=== PATIENT | female | born 1970 ===

== ENCOUNTER 2018-08-16 21:33 | Emergency (ER) | payer OTHER ==
[2018-08-16 21:40] VITALS: O2SAT 100
--- NOTE | 2018-08-16 21:49 | C.PDOC ---
History Of Present Illness 47 y/o female presents to the ED complaining of right lower quadrant pain and back pain that started earlier today. She denies any fever, chills, nausea, or vomiting. Pain is rated 4/10 and constant. Otherwise patient denies associated diarrhea, dysuria, frequency, or urinary incontinence. Time Seen by Provider: 08/16/18 21:48 Chief Complaint (Nursing): Abdominal Pain History Per: Patient History/Exam Limitations: no limitations Onset/Duration Of Symptoms: Hrs Current Symptoms Are (Timing): Still Present Severity: Moderate Pain Scale Rating Of: 4 Location Of Pain/Discomfort: RLQ Radiation Of Pain To:: Back Quality Of Discomfort: "Pain" Associated Symptoms: denies: Nausea, Vomiting, Urinary Symptoms Alleviating Factors: None Past Medical History Reviewed: Historical Data, Nursing Documentation, Vital Signs Vital Signs: Last Vital Signs Temp 97.6 F 08/16/18 21:37 Pulse 61 08/16/18 21:37 Resp 20 08/16/18 21:37 BP 123/80 08/16/18 21:37 Pulse Ox 100 08/16/18 21:37 - Medical History PMH: Asthma, Hypothyroidism Other Surgeries: Gastric surgery Family History: States: No Known Family Hx - Social History Hx Alcohol Use: Yes Hx Substance Use: No - Immunization History Hx Tetanus Toxoid Vaccination: No Hx Influenza Vaccination: No Hx Pneumococcal Vaccination: No Review Of Systems Constitutional: Negative for: Fever, Chills Gastrointestinal: Positive for: Abdominal Pain (RLQ). Negative for: Nausea, Vomiting, Diarrhea, Constipation, Hematochezia Genitourinary: Negative for: Dysuria, Frequency, Incontinence, Hematuria Musculoskeletal: Positive for: Back Pain Physical Exam - Physical Exam Appears: Non-toxic, No Acute Distress Skin: Warm, Dry Head: Normacephalic Eye(s): bilateral: Normal Inspection Oral Mucosa: Moist Neck: Trachea Midline, Supple Chest: Symmetrical Cardiovascular: Rhythm Regular Respiratory: No Rales, No Rhonchi, No Wheezing Gastrointestinal/Abdominal: Soft, Tenderness (to RLQ and right flank), No Gua rding, No Rebound Back: No CVA Tenderness, No Vertebral Tenderness Extremity: Bilateral: Normal Color And Temperature, Normal ROM Pulses: Left Dorsalis Pedis: Normal, Right Dorsalis Pedis: Normal Neurological/Psych: Oriented x3 Gait: Steady ED Course And Treatment - Laboratory Results Result Diagrams: 08/16/18 22:03 08/16/18 22:03 Urine POC: Negative O2 Sat by Pulse Oximetry: 100 (RA) Pulse Ox Interpretation: Normal Progress Note: Blood work and urine sent to the lab. Ordered CT abdomen/pelvis. Administered IVF hydration, Toradol, Zofran, and Protonix. Reevaluation Time: 01:03 Reassessment Condition: Improved Disposition Counseled Patient/Family Regarding: Studies Performed, Diagnosis, Need For F ollowup, Rx Given - Disposition Referrals: [facility] [Outside] [facility] [Outside] Disposition: HOME/ ROUTINE Disposition Time: 21:49 Condition: FAIR Additional Instructions: Por favor regrese si los sntomas recurren Prescriptions: Naproxen [Naprosyn] 1 tab PO BID PRN #25 tab PRN Reason: Pain Ondansetron ODT [Zofran ODT] 1 odt PO BID PRN #6 odt PRN Reason: Nausea/Vomiting Instructions: Acute Abdomen (Belly Pain), Adult (DC), Diverticulosis (DC) Forms: [employer] ([place]) Print Language: MONEGASQUE - Clinical Impression Clinical Impression: Abdominal pain, Diverticulosis - Scribe Statement The provider has reviewed the documentation as recorded by the Jodie Garduno Provider Attestation: All medical record entries made by the Jodie were at my direction and personally dictated by me. I have reviewed the chart and agree that the record accurately reflects my personal performance of the history, physical exam, medical decision making, and the department course for this patient. I have also personally directed, reviewed, and agree with the discharge instructions and disposition.
[2018-08-16] MEDS ORDERED: Sodium Chloride 0.9% 1,000 ML IV ONE (21:54)
[2018-08-16 22:08] LABS: BASO % 0.5 % (0.0-2.0); EOS # 0.1 K/uL (0.0-0.7); HEMOGLOBIN 13.2 g/dL (11.0-16.0); LYMPH # 3.1 K/uL (1.0-4.3); LYMPH % 33.1 % (20.0-40.0); MEAN CELL VOLUME 93.6 fL (81.0-99.0); MEAN CORPUSCULAR HEMOGLOBIN 31.2 pg (27.0-31.0); MEAN CORPUSCULAR HGB CONC 33.3 g/dL (33.0-37.0); MEAN PLATELET VOLUME 9.9 fL (7.2-11.7); MONO # 0.5 K/uL (0.0-0.8); MONO % 5.4 % (0.0-10.0); NEUT # 5.5 K/uL (1.8-7.0); NRBC % 0.1 % (0.0-2.0); RBC 4.25 Mil/uL (3.80-5.20); RED CELL DISTRIBUTION WIDTH 13.3 % (11.5-14.5); WHITE BLOOD COUNT 9.2 K/uL (4.8-10.8)
[2018-08-16 22:09] LABS: HCG,QUALITATIVE URINE NEGATIVE (NEGATIVE)
[2018-08-16] MEDS ORDERED: Sodium Chloride 0.9% 1,000 ML ONE (22:10)
[2018-08-16 22:11] LABS: SQUAMOUS EPITHIAL 1 /hpf (0-5); URINE BACTERIA RARE (<OCC); URINE BILIRUBIN NEGATIVE (NEGATIVE); URINE BLOOD 1+ (NEGATIVE); URINE CLARITY Clear (Clear); URINE COLOR Yellow (YELLOW); URINE GLUCOSE (UA) NORMAL (Normal); URINE LEUKOCYTE ESTERASE NEG Leu/uL (Negative); URINE PROTEIN NEGATIVE (NEGATIVE); URINE UROBILINOGEN NORMAL mg/dL (0.2-1.0)
[2018-08-16 22:16] LABS: PROTHROMBIN TIME 11.1 SECONDS (9.7-12.2)
[2018-08-16 22:22] LABS: ALB/GLOB RATIO 1.2 (1.0-2.1); ALBUMIN 4.2 g/dL (3.5-5.0); ALT/SGPT 43 U/L (9-52); AST/SGOT 75 U/L (14-36); BLOOD UREA NITROGEN 16 mg/dL (7-17); CALCIUM 9.2 mg/dl (8.6-10.4); GFR NON-AFRICAN AMERICAN > 60; LIPASE 115 U/L (23-300)
[2018-08-16] MEDS ORDERED: Iohexol 300 100 ML IJ ONE (22:50)
[2018-08-17 01:25] VITALS: BP 100/64; PULSE 63; RESP 18; TEMP 98.3
--- NOTE | 2018-08-17 11:23 | CT ---
Date of service: 08/16/2018 PROCEDURE: CT Abdomen and Pelvis with contrast HISTORY: ruq abd pain, back pain COMPARISON: None. TECHNIQUE: Contrast dose: 100 mL of Omnipaque 300 intravenously. Axial and reformatted coronal and sagittal CT images of the abdomen and pelvis were obtained after IV contrast administration. Radiation dose: Total exam DLP = 1153.37 mGy-cm. This CT exam was performed using one or more of the following dose reduction techniques: Automated exposure control, adjustment of the mA and/or kV according to patient size, and/or use of iterative reconstruction technique. FINDINGS: LOWER THORAX: No evidence of acute pathology at the lung bases. LIVER: Mild periportal edema is noted. Otherwise no evidence of acute pathology or mass lesion in the liver. The portal vein is patent. GALLBLADDER AND BILE DUCTS: No evidence of acute cholecystitis or biliary obstruction. PANCREAS: Unremarkable. No gross lesion or ductal dilatation. SPLEEN: Unremarkable. ADRENALS: Unremarkable. No mass. KIDNEYS AND URETERS: Mildly dilated right kidney collecting system noted without definite evidence of obstructing ureter stone. VASCULATURE: Unremarkable. No aortic aneurysm. No aortic atherosclerotic calcification or mural plaque present. BOWEL: Postsurgical changes noted around the stomach. No obstruction. No gross mural thickening. Colonic diverticulosis noted without evidence of diverticulitis. APPENDIX: Normal appendix. PERITONEUM: Unremarkable. No free fluid. No free air. LYMPH NODES: Unremarkable. No enlarged lymph nodes. BLADDER: Mild urinary bladder wall thickening. REPRODUCTIVE: Unremarkable. BONES: No acute fracture. OTHER FINDINGS: Possible mild pelvic congestion changes. IMPRESSION: No evidence of acute cholecystitis or pancreatitis. Mildly dilated right kidney collecting system noted without evidence of obstructing calculus. The differential consideration includes recently passed small right renal calculus versus infectious process. Preliminary report contains concordance findings was submitted by [facility]. Mild urinary bladder wall thickening.
== END 2018-08-17 01:25 | disposition home or self-care (01) ==
LOC: C.ER 21:33
DX: R10.31 Right lower quadrant pain (principal); K57.90 Diverticulosis of intestine, part unspecified, without perforation or abscess without bleeding; E03.9 Hypothyroidism, unspecified
CPT/HCPCS: 74177; 80053; 81001; 83690; 84703; 85025; 85610; 85730; 96361; 96374; 96375; 99285; C9113; J1885; J2405; J7030; Q9967